=== PATIENT | male | born 1990 | race Caucasian/White ===

== ENCOUNTER 2017-05-13 22:55 | Emergency (ER) | payer BC, OTHER ==
[~2017-05-13] VITALS: Ht 182.9 cm; Wt 91.5 kg
[2017-05-13 22:55] VITALS: BP 134/71
== END 2017-05-13 23:33 | disposition home or self-care (01) ==
LOC: ED 23:20
DX: J02.9 Acute pharyngitis, unspecified (principal); F17.200 Nicotine dependence, unspecified, uncomplicated
CPT/HCPCS: 99283

== ENCOUNTER 2017-08-24 18:36 | Emergency (ER) | payer OTHER, BC ==
[~2017-08-24] VITALS: Ht 182.9 cm; Wt 85.0 kg
[2017-08-24 20:47] VITALS: BP 139/74
== END 2017-08-24 20:48 | disposition home or self-care (01) ==
LOC: ED 20:45
DX: S40.011A Contusion of right shoulder, initial encounter (principal); G89.29 Other chronic pain; R10.9 Unspecified abdominal pain; W01.0XXA Fall on same level from slipping, tripping and stumbling without subsequent striking against object, initial encounter; Y93.89 Activity, other specified; Y92.89 Other specified places as the place of occurrence of the external cause; Y99.8 Other external cause status
CPT/HCPCS: 99284